=== PATIENT | male | born 1985 | race Caucasian/White ===

== ENCOUNTER 2016-02-09 18:13 | Emergency (ER) | payer OTHER ==
--- NOTE | 2016-02-09 18:19 | ED.REPORT ---
HPI-General Illness Date of Service Feb 09, 2016 ED Provider: Abbey Ocampo MD Pt is a 30 y.o. male with a hx of asthma who presents to the ED via EMS c/o back pain radiating to his chest onset today. Pt was seen at prior to arrival and had a normal EKG and chest x-ray, he was also administered albuterol with no relief. Pt states that he was seen for similar sx 1 month ago and was diagnosed with muscle spasms, he was prescribed muscle relaxers and anti -inflammatories which he states resolved his sx. He reports that his pain reoccurred today, suddenly, and he denies any trauma. 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 Pt reports associated SOB and increased pain with inspiration he also describes the pain as between his shoulder blades rated at a 2 when supine and a 10 when sitting upright or with movement. He describes his chest pain as tightness. He denies fever, chills, nausea, and vomiting. Nursing Notes Stated Complaint: BACK AND CHEST PAIN Nursing Notes Reviewed: Yes Allergies: Coded Allergies: No Known Allergies (Unverified , 02/09/16) Scheduled PRN Hydrocodone-Acetaminophen 5-325 mg (Hydrocodone-Acetaminophen 5-325 mg) 1 Each Tablet 1 TABLET PO Q6H PRN PRN For Pain General Time Seen by MD: 18:19 Chief Complaint Back pain, Chest pain Hx Obtained From: Patient Arrived By: Ambulance Sudden in Onset?: Yes Onset Occurred: 5 - 8 hours ago Symptom Duration: Since onset Location: : Back: Chest Quality: Painful Severity: Current: Pain level 2 out of 10 Severity: Maximum: Pain level 10 out of 10 Recent Healthcare: Recent doctor visit Similar Sx Previous: Yes Past Medical History Past Medical History Reports: Asthma Social History Alcohol Use: "Social" Drug Use: THC Ambulatory Status Independent Review of Systems Full Review of Systems Constitutional: Denies: Chills, Fever Respiratory: Reports: Shortness of breath Cardiovascular: Reports: Chest pain GI: Denies: Nausea, Vomiting Musculoskeletal: Reports: Back pain Physical Exam Vital Signs Vital Signs Date Time Temp Pulse Resp B/P Pulse Ox O2 Delivery O2 Flow Rate FiO2 02/09/16 20:43 71 20 139/83 100 Room Air 02/09/16 20:28 71 20 139/83 100 Room Air 02/09/16 18:24 78 22 144/85 100 Room Air Initial VS: Reviewed, Vital signs abnormal General/Constitutional: Well-developed, Well-nourished Head / Eyes: Atraumatic, Normocephalic Abdomen / GI: No distention Extremities: Vascular intact, Neuro intact Skin: Warm, Dry Neurologic: Alert, Oriented, Nonfocal Psychiatric: Mood/affect normal, Behavior normal, Normal thought content Respiratory / Chest: Atraumatic, Breath sounds NL, Breath sounds = bilat, No respiratory distress, No rales, No rhonchi, No wheezing, No retractions, No stridor Cardiovascular: Heart rate NL, Regular rhythm, Heart sounds NL, No gallop, No murmurs, No rubs Back: Atraumatic Flank / Spine / Paraspinal: Positive: Thorac paraspinal tend... (Mid to upper) Wrist / Hand: Atraumatic, Neurologic intact, Vascular intact Mottling of hands bilaterally Interpretation & Diagnostics Lab Results Interpretation Result Diagram: 02/09/162 02/09/16 1852 Test 02/09/16 18:52 02/09/16 18:53 White Blood Count 11.1th/mm3 (3.8-10.1) Red Blood Count 5.35mil/mm3 (4.40-5.80) Hemoglobin 14.6g/dL (13.8-17.2) Hematocrit 43.6% (41.0-50.0) Mean Corpuscular Volume 81.5fL (81-100) Mean Corpuscular Hemoglobin 27.3pg (27.0-35.0) Mean Corpuscular Hemoglobin Concent 33.5% (32.0-37.0) Red Cell Distribution Width 13.9% (12.3-15.4) Platelet Count 222bil/L (150-400) Neutrophils (%) (Auto) 79.0% (40-74) Lymphocytes (%) (Auto) 10.1% (14-46) Monocytes (%) (Auto) 9.3% (4-12) Eosinophils (%) (Auto) 0.9% (0-5) Basophils (%) (Auto) 0.1% (0-3) Sodium Level 135mEq/L (134-144) Potassium Level 3.7mEq/L (3.5-5.2) Chloride Level 98mEq/L (97-108) Carbon Dioxide Level 19mmol/L (18-29) Blood Urea Nitrogen 10mg/dL (6-20) Creatinine 0.88mg/dL (0.76-1.27) Estimat Glomerular Filtration Rate 107mL/min (>59) Glucose Level 102mg/dL (60-99) Calcium Level 9.6mg/dL (8.5-10.1) Magnesium Level 1.7mg/dL (1.6-2.6) Troponin T < 0.010ug/L (0.0-0.011) Hold Plata Top Tube Received (Received) ECG Interpretation Time: 19:04 Interpreted by: ED physician Normal ECG Interpretation: Normal rate, Normal sinus rhythm, No acute ischemic changes, Normal QRS, Normal axis, Normal intervals X-Ray Chest Interpretation Chest Xray Interpretation: IMPRESSION: No acute cardiopulmonary disease. Dictated by: Mary Balderrama M.D. on 02/09/2016 at 17:41 Approved by: Mary Balderrama M.D. on 02/09/2016 at 17:41 CT Chest Interpretation IMPRESSION: No evidence for central pulmonary embolism. Dictated by: Mary Balderrama M.D. on 02/09/2016 at 20:14 Approved by: Mary Balderrama M.D. on 02/09/2016 at 20:14 Re-Eval/Medical Decision Med Decision/Clinical Course The patient presented with sudden severe upper back pain. His exam was most consistent with musculoskeletal pain however the patient also had complaints of difficulty breathing. Given the sudden onset was concern for possible pulmonary embolus, other diagnoses considered were acute coronary syndrome, pneumonia, and aortic dissection. The patient's evaluation here did not reveal a source of his pain, he did not get any improvement in his pain with treatment here. The patient had something somewhat similar month ago but in slightly different area, he was told he needs to follow-up with the primary care physician. Source of Hx: Old records Time of Eval: 20:35 Patient Status: No relief Re-Evaluation/Progress Note: Pt rechecked. Pt reports no relief in pain. Discussed plan for discharge, pt understands and agrees with plan. Counseled Regarding: Diagnosis, Lab results, Need for follow-up, When/why to return to ED Discharge & Departure Primary Impression: Musculoskeletal pain Additional Impression: Muscle spasm Disposition: Home Discharge Condition All VS Reviewed: Yes Condition: Stable Additional Instructions: All of your imaging and lab results are reassuring for no serious cause for your musculoskeletal pain. You can take up to 600 mg of ibuprofen 3 times a day for up to 7 days for your pain, make sure to take this medication with food. Use your pain medication sparingly. Follow-up with your primary care physician as we cannot continue to treat this pain in the ER as it is consider chronic. Seek care if you begin to experience numbness or tingling in your extremities, or any new or worsening symptoms. Referrals: [facility] Att[facility] Portions of this note were transcribed by Aggie Kerr. I, Dr. Ocampo personally performed the history, physical exam and medical decision-making; I reviewed and confirmed the accuracy of the information in the transcribed note. Signed by: Hakan Degroot, 02/09/2016 and 2036. copies to: [facility] Abbey Ocampo MD Feb 09, 2016 18:19 AGGIE KERR Feb 09, 2016 18:33
[2016-02-09 18:24] VITALS: BP 144/85; PULSE 78; RESP 22; O2SAT 100
[2016-02-09] MEDS ORDERED: HYDROmorphone 0.5 mg/0.5 mL iSecure Syringe IVPUSH ONE (18:35)
[2016-02-09] MEDS ORDERED: 0.9% Sodium Chloride 1,000 ML IV ONE (18:35)
[2016-02-09 19:00] LABS: BASOPHILS % (AUTO) 0.1 % (0-3); EOSINOPHILS % (AUTO) 0.9 % (0-5); MONOCYTES % (AUTO) 9.3 % (4-12); Mean Corpuscular Hemoglobin 27.3 pg (27.0-35.0); Mean Corpuscular Volume 81.5 fL (81-100); Platelet Count 222 bil/L (150-400)
[2016-02-09 19:38] LABS: Magnesium 1.7 mg/dL (1.6-2.6); TROPONIN T < 0.010 ug/L (0.0-0.011)
--- NOTE | 2016-02-09 20:16 | DRSVH ---
PROCEDURE: CT ANGIO CHEST PULMONARY EMBOLISM ([id number]) INDICATIONS: sudden thoracic back pain and dyspnea TECHNIQUE: After the administration of intravenous contrast, 2 mm thick sections acquired from the pulmonary api elise to the posterior costophrenic angles. 3-dimensional maximum intensity projection (MIP) coronal a nd sagittal reformats were then acquired through the thorax. For radiation dose reduction, the follo wing was used: automated exposure control, adjustment of mA and/or kV according to patient size. COMPARISON: None. FINDINGS: Image quality: Excellent. Pulmonary arteries: Pulmonary arteries are normal in size, and demonstrate no intraluminal filling d efects to suggest central pulmonary embolism. Lungs and pleura: Lungs are clear. No pleural effusions or pneumothorax. Central and peripheral ai rways are patent. Mediastinum: Heart size is normal, without pericardial effusion. No mediastinal or hilar adenopathy . Thoracic aorta is normal in caliber and enhancement. Esophagus is normal in caliber, without hiat al hernia. Bones and chest wall: No suspicious bony lesions. Ribs and thoracic spine appear intact throughout. Thyroid gland is normal. No axillary or supraclavicular adenopathy. Abdomen: Visualized upper abdominal solid organs appear normal in the early arterial phase of enhanc ement. IMPRESSION: No evidence for central pulmonary embolism. Dictated by: Mary Balderrama M.D. on 02/09/2016 at 20:14 Approved by: Mary Balderrama M.D. on 02/09/2016 at 20:14
[2016-02-09 20:28] VITALS: BP 139/83; PULSE 71; RESP 20; O2SAT 100
[2016-02-09] MEDS ORDERED: HYDR-4003 PO (20:28)
[2016-02-09 20:43] VITALS: BP 139/83; PULSE 71; RESP 20; O2SAT 100
== END 2016-02-09 20:43 | disposition home or self-care (01) ==
LOC: EDUNIT# 18:13 → EDBD 18:13 → SED 18:13
DX: M54.9 Dorsalgia, unspecified (principal); M62.838 Other muscle spasm; J45.909 Unspecified asthma, uncomplicated; F12.10 Cannabis abuse, uncomplicated
CPT/HCPCS: 36415; 71275; 80048; 83735; 84484; 85025; 93005; 96361; 96374; 96375; 99285; J1170; J2060; J7030; Q9967